=== PATIENT | female | born 1950 | race Caucasian/White ===

== ENCOUNTER → 2016-10-31 | Outpatient (CLI) | payer MEDICARE | END | disposition home or self-care (01) | LOC: CFH 13:34 → EDSTATUS 14:00 | PROVIDERS: ATTEND Nurse Practitioner Family | DX: Z13.820 Encounter for screening for osteoporosis (principal); R92.8 Other abnormal and inconclusive findings on diagnostic imaging of breast; M81.0 Age-related osteoporosis without current pathological fracture; N63 Unspecified lump in breast | CPT/HCPCS: 76641; 77080; G0204 ==

== ENCOUNTER → 2016-12-12 | Outpatient (CLI) | payer MEDICARE ==
[~2016-12-12] MED LIST: OMNIPAQUE 350 MG/ML, 100ML BOTTLE ONE
== END | disposition home or self-care (01) ==
LOC: CFH 13:35
PROVIDERS: ATTEND Internal Medicine Gastroenterology
DX: K76.0 Fatty (change of) liver, not elsewhere classified (principal); K21.9 Gastro-esophageal reflux disease without esophagitis; N28.1 Cyst of kidney, acquired
CPT/HCPCS: 74177; 82565; Q9967

== ENCOUNTER → 2017-04-20 | Outpatient (CLI) | payer MEDICARE ==
[~2017-04-20] MED LIST changes: +ALEN70TA5 PO; -OMNIPAQUE 350 MG/ML, 100ML BOTTLE ONE; +SIMV5TAB5 PO
[2017-04-20 14:08] LABS: HEMATOCRIT 44.5 % (34.6-47.8); HEMOGLOBIN 14.9 g/dL (11.7-16.4); WHITE BLOOD COUNT 6.8 x10^3/uL (3.4-10)
[2017-04-20 14:18] LABS: BLOOD UREA NITROGEN 15 mg/dL (7-18)
== END | disposition home or self-care (01) ==
LOC: STAR 12:37
PROVIDERS: ATTEND Orthopaedic Surgery
DX: Z01.818 Encounter for other preprocedural examination (principal); M17.12 Unilateral primary osteoarthritis, left knee; M81.0 Age-related osteoporosis without current pathological fracture
CPT/HCPCS: 36415; 80048; 81003; 85025; 87081; 93005

== ENCOUNTER 2017-04-27 05:53 | Inpatient (IN) | payer MEDICARE ==
[~2017-04-27] VITALS: Ht 157.5 cm; Wt 63.8 kg
[2017-04-27] MEDS ORDERED: ROPIvacaine/PF 0.2%, 20 ML ONE (06:26)
[2017-04-27] MEDS ORDERED: TRANEXAMIC ACID 100 MG/ML, 10ML ONE (06:26)
[2017-04-27] MEDS ORDERED: EPINEPHRINE 1 MG/ML, 1ML ONE (06:26)
[2017-04-27] MEDS ORDERED: KETOROLAC 60 MG/2 ML ONE (06:26)
[2017-04-27] MEDS ORDERED: SODIUM CHLORIDE 0.9% 100 ML ONE (06:26)
[2017-04-27] MEDS ORDERED: FENTANYL PF 250 MCG/5ML ONE (06:31)
[2017-04-27] MEDS ORDERED: MIDAZOLAM 1 MG/ML, 2ML ONE ×2 (06:31→07:15)
[2017-04-27] MEDS ORDERED: LACTATED RINGERS 1,000 ML IV SCH (06:50)
[2017-04-27] MEDS ORDERED: DEXAMETHASONE 4 MG/ML, 1ML ONE (07:15)
[2017-04-27] MEDS ORDERED: FENTANYL PF 100 MCG/2ML ONE (07:15)
[2017-04-27] MEDS ORDERED: ONDANSETRON 2MG/ML, 2ML ONE (07:15)
[2017-04-27] MEDS ORDERED: CEFAZOLIN 1,000 MG ONE (07:15)
[2017-04-27] MEDS ORDERED: SUCCINYLCHOLINE 20 MG/ML, 10ML ONE (08:17)
[2017-04-27] MEDS ORDERED: PROPOFOL 10 MG/ML, 20ML ONE ×2 (08:17)
[2017-04-27] MEDS ORDERED: ROCURONIUM 10 MG/ML,10ML ONE (08:17)
[2017-04-27] MEDS ORDERED: ACETAMINOPHEN 650 MG/20.3 ML UDC PO PRN (09:00)
[2017-04-27] MEDS ORDERED: DIAZEPAM 5 MG TABLET PO PRN (09:00)
[2017-04-27] MEDS ORDERED: PROMETHAZINE 12.5 MG SUPP PR PRN (09:00)
[2017-04-27] MEDS ORDERED: ACETAMINOPHEN 325 MG TABLET PO PRN (09:00)
[2017-04-27] MEDS ORDERED: ZOLPIDEM 5MG TABLET PO PRN (09:00)
[2017-04-27] MEDS ORDERED: PROMETHAZINE 25 MG/ML, 1ML IM PRN (09:00)
[2017-04-27] MEDS ORDERED: hydrALAzine 20 MG/ML, 1ML IV PRN (09:00)
[2017-04-27] MEDS ORDERED: OXYcodone 5 MG/5 ML ORAL.SOL UDC PO PRN (09:00)
[2017-04-27] MEDS ORDERED: MAGNESIUM HYDROXIDE 8%, 30ML UDC PO PRN (09:00)
[2017-04-27] MEDS ORDERED: SENNA/DOCUSATE TABLET PO PRN (09:00)
[2017-04-27] MEDS ORDERED: OXYcodone IR 5MG TABLET PO PRN (09:00)
[2017-04-27] MEDS ORDERED: DIPHENHYDRAMINE 25 MG CAPSULE PO PRN (09:00)
[2017-04-27] MEDS ORDERED: FENTANYL PF 100 MCG/2ML IV PRN (09:00)
[2017-04-27] MEDS ORDERED: ONDANSETRON 2MG/ML, 2ML IVPush PRN (09:00)
[2017-04-27] MEDS ORDERED: HYDROcodone/APAP 10/325 MG TABLET PO PRN (09:00)
[2017-04-27] MEDS ORDERED: LABETALOL 5MG/ML, 20ML IV PRN (09:00)
[2017-04-27] MEDS ORDERED: METOCLOPRAMIDE 5 MG/ML, 2ML IV PRN (09:00)
[2017-04-27] MEDS ORDERED: ALUMINUM/MAG/SIMETHICONE 30 ML UDC PO PRN (09:00)
[2017-04-27] MEDS ORDERED: ONDANSETRON 4 MG TABLET PO PRN (09:00)
[2017-04-27] MEDS ORDERED: HYDROmorphone 1 MG/ML, 1ML IV PRN ×2 (09:00)
[2017-04-27] MEDS ORDERED: ONDANSETRON 2MG/ML, 2ML IV PRN (09:00)
[2017-04-27] MEDS ORDERED: BISACODYL 10 MG SUPP PR PRN (09:00)
[2017-04-27] MEDS ORDERED: ACETAMINOPHEN 650 MG/20.3 ML UDC ONE (09:08)
[2017-04-27] MEDS ORDERED: OXYcodone 5 MG/5 ML ORAL.SOL UDC ONE (09:08)
[2017-04-27] MEDS ORDERED: TRANEXAMIC ACID 1,000 MG in SODIUM CHLORIDE 0.9% 100 ML IVPB ONE (09:30)
[2017-04-27] MEDS: D5%-0.45% NACL 1,000 ML IV SCH ×2 (11:40→21:00)
[2017-04-27] MEDS: DOCUSATE 100 MG CAPSULE PO SCH ×2 (11:41→19:47)
[2017-04-27] MEDS: TAMSULOSIN 0.4 MG CAP.ER.24H PO SCH (11:41)
[2017-04-27 14:20] VITALS: BP 117/75
[2017-04-27] MEDS: CEFAZOLIN PMX 2GM/50ML 50 ML IVPB SCH ×2 (15:26→23:17)
[2017-04-27] MEDS: OXYcodone IR 5MG TABLET PO SCH ×3 (15:28→23:17)
[2017-04-27] MEDS: MULTIVITAMINS/MINERALS TABLET PO SCH (18:12)
[2017-04-27] MEDS: ASPIRIN 81 MG TABLET EC PO SCH (18:13)
[2017-04-27 20:44] VITALS: BP 103/64
[2017-04-27] MEDS ORDERED: SIMVASTATIN 5 MG TABLET PO SCH (21:00)
[2017-04-27 23:42] VITALS: BP 94/57
[2017-04-28] MEDS: OXYcodone IR 5MG TABLET PO SCH ×2 (03:14→06:28)
[2017-04-28] MEDS: D5%-0.45% NACL 1,000 ML IV SCH ×2 (03:24→09:24)
[2017-04-28 04:23] VITALS: BP 103/64
[2017-04-28 05:09] LABS: HEMOGLOBIN 11.8 g/dL (11.7-16.4)
[2017-04-28] MEDS ORDERED: DEXAMETHASONE 4 MG/ML, 1ML IVPush SCH (06:00)
[2017-04-28 07:12] VITALS: BP 107/70
[2017-04-28] MEDS ORDERED: KETOROLAC 30 MG/1 ML IV SCH (09:00)
[2017-04-28] MEDS: ASPIRIN 81 MG TABLET EC PO SCH (09:20)
[2017-04-28] MEDS: MULTIVITAMINS/MINERALS TABLET PO SCH (09:20)
[2017-04-28] MEDS: TAMSULOSIN 0.4 MG CAP.ER.24H PO SCH (09:20)
[2017-04-28] MEDS: DOCUSATE 100 MG CAPSULE PO SCH (09:21)
[2017-04-28] MEDS ORDERED: OXYC5CAP2 PO (10:50)
== END 2017-04-28 11:00 | disposition home or self-care (01) | DRG 470 ==
LOC: ORIP 05:53 → 4NOR 10:13 → DCLOUNGE 04-28 10:40
PROVIDERS: ADMIT Orthopaedic Surgery; ATTEND Orthopaedic Surgery
PROC: 0SRD0J9 Replacement of Left Knee Joint with Synthetic Substitute, Cemented, Open Approach (ICD-10-PCS; principal; 2017-04-27 07:30)
DX: M17.12 Unilateral primary osteoarthritis, left knee (principal); E78.5 Hyperlipidemia, unspecified; M81.0 Age-related osteoporosis without current pathological fracture
CPT/HCPCS: 36415; 85014; 85018; C1713; J0171; J0690; J1100; J1885; J2250; J2405; J2704; J2795; J3010; Q0162; C1776; J0330; J7120

== ENCOUNTER → 2017-12-04 | Outpatient (CLI) | payer MEDICARE ==
[~2017-12-04] MED LIST changes: +OXYC5CAP2 PO
== END | disposition home or self-care (01) ==
LOC: CFH 14:04
PROVIDERS: ATTEND Nurse Practitioner Family
DX: Z12.31 Encounter for screening mammogram for malignant neoplasm of breast (principal); R92.8 Other abnormal and inconclusive findings on diagnostic imaging of breast; Z80.3 Family history of malignant neoplasm of breast
CPT/HCPCS: 76377; 76642; 77063; 77067

== ENCOUNTER → 2018-04-15 | Outpatient (CLI) | payer MEDICARE ==
[~2018-04-15] MED LIST changes: +OMNIPAQUE 350 MG/ML, 100ML BOTTLE ONE
== END | disposition home or self-care (01) ==
LOC: CFH 11:51
PROVIDERS: ATTEND Internal Medicine Gastroenterology
DX: K76.89 Other specified diseases of liver (principal); N28.1 Cyst of kidney, acquired; E16.8 Other specified disorders of pancreatic internal secretion
CPT/HCPCS: 74170; Q9967

== ENCOUNTER 2018-12-09 09:36 | Outpatient (CLI) | payer MEDICARE | END 2018-12-09 23:59 | disposition home or self-care (01) | LOC: CFH 09:36 | PROVIDERS: ATTEND Nurse Practitioner Family | DX: Z12.31 Encounter for screening mammogram for malignant neoplasm of breast (principal); M81.0 Age-related osteoporosis without current pathological fracture; R92.8 Other abnormal and inconclusive findings on diagnostic imaging of breast | CPT/HCPCS: 76641; 77063; 77067; 77080 ==

== ENCOUNTER 2020-01-05 13:48 | Outpatient (CLI) | payer MEDICARE ==
[~2020-01-05 13:48] MED LIST changes: -ALEN70TA5 PO; +ALEN70TA6 PO; -OMNIPAQUE 350 MG/ML, 100ML BOTTLE ONE; +SIMV5TAB14 PO; -SIMV5TAB5 PO
== END 2020-01-05 23:59 | disposition home or self-care (01) ==
LOC: CFH 13:48
PROVIDERS: ATTEND Nurse Practitioner Family
DX: Z12.31 Encounter for screening mammogram for malignant neoplasm of breast (principal); N64.89 Other specified disorders of breast
CPT/HCPCS: 76641; 77063; 77067

== ENCOUNTER → 2020-07-17 | Outpatient (CLI) | payer MEDICARE ==
[~2020-07-17] MED LIST changes: -ALEN70TA6 PO; +ALEN70TA77 PO
== END | disposition home or self-care (01) ==
LOC: CVU 15:25
PROVIDERS: ATTEND Registered Nurse
DX: R42 Dizziness and giddiness (principal); E78.5 Hyperlipidemia, unspecified
CPT/HCPCS: 93880

== ENCOUNTER → 2020-11-06 | Outpatient (CLI) | payer MEDICARE | END | disposition home or self-care (01) | LOC: CFH 10:45 | PROVIDERS: ATTEND Nurse Practitioner Family | DX: M81.0 Age-related osteoporosis without current pathological fracture (principal); R42 Dizziness and giddiness | CPT/HCPCS: 77080 ==

== ENCOUNTER 2021-01-15 09:49 | Outpatient (CLI) | payer MEDICARE | END 2021-01-15 23:59 | disposition home or self-care (01) | LOC: CFH 09:49 | PROVIDERS: ATTEND Nurse Practitioner Family | DX: Z12.31 Encounter for screening mammogram for malignant neoplasm of breast (principal); Z12.39 Encounter for other screening for malignant neoplasm of breast | CPT/HCPCS: 76641; 77063; 77067 ==